=== PATIENT | male | born 1970 | race Caucasian/White ===

== ENCOUNTER 2018-01-17 07:39 | Emergency (ER) | payer OTHER, SELFPAY ==
[2018-01-17] MEDS ORDERED: Ketorolac Tromethamine 60 MG/2 ML VIAL ONE (07:56)
[2018-01-17] MEDS ORDERED: Cyclobenzaprine 10 MG TAB ONE (07:56)
[2018-01-17] MEDS ORDERED: Acetaminophen/Codeine 30-300mg Tablet ONE (07:56)
== END 2018-01-17 08:10 | disposition home or self-care (01) ==
LOC: MADERS 07:39
DX: M54.5 Low back pain (principal); F17.210 Nicotine dependence, cigarettes, uncomplicated
CPT/HCPCS: 96372; J1885

== ENCOUNTER 2018-03-01 10:44 | Emergency (ER) | payer OTHER, SELFPAY ==
[2018-03-01 11:42] LABS: #Basophils 0.1 thou/uL (0.0-0.2); #Eosinphils 0.1 thou/uL (0.0-0.7); #Lymphocytes 2.3 thou/uL (1.20-3.40); #Monocytes 0.4 thou/uL (0.11-0.59); #Neutrophils 5.4 thou/uL (1.40-6.50); %Basophils 0.9 % (0.0-1.0); %Eosinophils 1.3 % (0.0-10.0); %Lymphocytes 27.4 % (21.0-51.0); %Neutrophils 65.4 % (42.0-75.0); Hemoglobin 15.4 g/dL (14.0-18.0); Mean Corpuscular HGB CONC 35.6 g/dL (32.0-36.0); Mean Corpuscular Hemoglobin 31.3 pg (27.0-31.0); Mean Corpuscular Volume 87.8 fL (78.0-98.0); Mean Platelet Volume 5.4 fL (7.4-10.4); Platelet Count 287 thou/uL (130-400); RBC Distribution Width 11.2 % (11.5-14.5); Red Blood Cell (RBC) Count 4.91 mill/uL (4.70-6.10); White Blood Cell (WBC) Count 8.2 thou/uL (4.8-10.8)
[2018-03-01 12:08] LABS: CKMB 0.8 ng/mL (0-6.6); Troponin I 0.012 ng/mL (< 0.028)
[2018-03-01 12:14] LABS: ALT (SGPT) 28 U/L (8-55); AST (SGOT) 21 U/L (5-34); Albumin 4.3 g/dL (3.5-5.0); Alkaline Phosphatase 72 U/L (40-150); BUN (Urea Nitrogen) 15 mg/dL (8.9-20.6); Bilirubin, Total 0.5 mg/dL (0.2-1.2); CK (CPK) 109 U/L (30-200); Calc. Creatinine Clearance 0 mL/min (70-130); Calcium 9.5 mg/dL (7.8-10.44); Carbon Dioxide 22 mmol/L (22-29); Estimated GFR-MDRD Greater than 90; Globulin 2.7 g/dL (2.4-3.5); Glucose 113 mg/dL (70-105)
[2018-03-01 13:02] LABS: Anion Gap 17 mmol/L (10-20); Chloride 105 mmol/L (98-107); Sodium 140 mmol/L (136-145)
--- NOTE | 2018-03-01 13:12 | RAD ---
2 VIEWS CHEST: Date: 03/01/18 HISTORY: Weakness. FINDINGS: PA and lateral views of chest obtained. The lungs are well aerated. No evidence of active intrathorac ic disease seen. No evidence of effusions, pneumonia, or pneumothorax seen. IMPRESSION: Normal 2 views chest. POS: [facility]
--- NOTE | 2018-03-01 13:15 | CT ---
CT OF THE BRAIN WITHOUT CONTRAST: Date: 03/01/18 COMPARISON: None. HISTORY: Right leg weakness. TECHNIQUE: Multiple contiguous axial images were obtained in a CT of the brain without contrast. FINDINGS: The brain is normal in morphology and attenuation without focal lesions or confluent areas of infarct ion. There is no evidence of hydrocephalus, intracranial hemorrhage, or extra-axial fluid collection. The calvarium and overlying soft tissues are unremarkable. The visualized paranasal sinuses and masto id air cells are well aerated. IMPRESSION: No evidence of acute intracranial abnormality. POS: [facility]
== END 2018-03-01 13:40 | disposition short-term general hospital (02) ==
LOC: MADERS 10:44
DX: R53.1 Weakness (principal); R29.818 Other symptoms and signs involving the nervous system; F17.210 Nicotine dependence, cigarettes, uncomplicated; Z79.899 Other long term (current) drug therapy
CPT/HCPCS: 70450; 71046; 80053; 82550; 82553; 84484; 85025; 85379; 85652; 93005; 94760